=== PATIENT | female | born 1955 | race Caucasian/White ===

== ENCOUNTER → 2020-01-31 | Outpatient (CLI) | payer MEDICARE ==
[~2020-01-31] MED LIST: FERR-36 PO; MULT-245 PO; PRAM2.252 PO; PSYL0.5215 PO
== END | disposition home or self-care (01) ==
LOC: LAB 09:46
PROVIDERS: ATTEND Registered Nurse
DX: Z01.818 Encounter for other preprocedural examination (principal); Z11.59 Encounter for screening for other viral diseases; R93.89 Abnormal findings on diagnostic imaging of other specified body structures
CPT/HCPCS: U0003-CS

== ENCOUNTER → 2020-02-04 | Day surgery (SDC) | payer MEDICARE, MEDICAID ==
[~2020-02-04] MED LIST changes: +IPRATRPIUM/ALBUTEROL 0.5/2.5MG 3 ML NEBU. NEB PRN; +MIDAZOLAM HCL PF 2 MG/2 ML VIAL. IV ONE; +ONDANSETRON PF 4 MG/2 ML VIAL. IV PRN; +PROPOFOL 10,000 MCG/ML (20ML) VIAL IV ONE
[2020-02-04] MEDS: IV RINGERS SOLUTION,LACTATED 1,000 ML IV SCH (10:03)
[2020-02-04 11:00] VITALS: BP 149/73
--- NOTE | 2020-02-06 14:11 | PATHOLOGY ---
[facility] Accession Number: [id number] . 01 Material submitted: . stomach - GASTRIC BX . 02 Diagnosis: Gastric biopsies: - Slight chronic inflammation. See comment. LBQ 02/06/2020 0956 Local . 02 Comment: Sections of the gastric biopsy reveal segments of gastric antral and antral-body transition mucosa showing slight chronic inflammation. There are scattered admixed eosinophils, and in one focus there are a few admixed neutrophils. A properly controlled immunoperoxidase stain for Helicobacter is negative for Helicobacter organisms. (JPM/db; 02/06/2020) . Special stain performed: Immunoperoxidase stain for Helicobacter . 02 Electronically signed: . Waldo Shirley MD, Pathologist NPI- [id number] . 01 Gross description: . The specimen is received in formalin, labeled "David, Tereza, gastric BX" and consists of 2 fragments of pink-mendoza tissue measuring 0.4 x 0.3 cm which are entirely submitted in A1. (SDY; 02/05/2020) SYU/SYU 02/05/2020 1005 Local . 02 Pathologist provided ICD-10: K29.50 . 02 CPT . 819106, [id number] Specimen Comment: A courtesy copy of this report has been sent to [phone] Specimen Comment: [id number] Specimen Comment: Report sent to / DR MOSELEY Performed at: 01 [facility] [address], [place] [id number] MD Wang Sanchez MD Phone: [phone] Performed at: 02 [facility] [address], [place] [id number] MD Waldo Shirley MD Phone: [phone]
== END | disposition home or self-care (01) ==
LOC: SURG 08:59
PROVIDERS: ATTEND Emergency Medicine
DX: R93.3 Abnormal findings on diagnostic imaging of other parts of digestive tract (principal); K29.50 Unspecified chronic gastritis without bleeding; K44.9 Diaphragmatic hernia without obstruction or gangrene; K31.89 Other diseases of stomach and duodenum; Z88.8 Allergy status to other drugs, medicaments and biological substances; Z79.899 Other long term (current) drug therapy
CPT/HCPCS: 43239; J2704; J7120

== ENCOUNTER → 2020-04-16 | Outpatient (CLI) | payer MEDICARE, MEDICAID ==
[2020-02-04 11:00] VITALS: BP 149/73
[~2020-04-16] MED LIST changes: -IPRATRPIUM/ALBUTEROL 0.5/2.5MG 3 ML NEBU. NEB PRN; -MIDAZOLAM HCL PF 2 MG/2 ML VIAL. IV ONE; -ONDANSETRON PF 4 MG/2 ML VIAL. IV PRN; -PROPOFOL 10,000 MCG/ML (20ML) VIAL IV ONE
--- NOTE | 2020-04-16 12:22 | RAD ---
EXAM: Abdomen Doppler sonogram. HISTORY: Weight loss. Pain. TECHNIQUE: Color Doppler sonographic imaging of the abdomen was performed with spectral waveform analysis. COMPARISON: None. FINDINGS: There is aortic atherosclerosis. No aortic aneurysm is seen. There are normal peak systolic velocities within the superior mesenteric artery. There is an elevated peak systolic velocity within the celiac axis measuring 236 cm/s. There is normal directional flow within a patent hepatic artery. The abdominal visceral structures are not formally assessed. IMPRESSION: 1. Elevated peak systolic velocity within the celiac axis suggesting hemodynamically significant stenosis. 2. No Doppler evidence of stenosis involving the superior mesenteric artery. 3. Aortic atherosclerosis. Electronically signed by: Mayte Joseph MD (04/16/2020 12:19 PM) [id number]
--- NOTE | 2020-04-16 14:25 | RAD ---
EXAM: Nuclear gastric emptying scan. HISTORY: Pain and weight loss. COMPARISON: None. TECHNIQUE: Serial static images were obtained over the stomach following oral administration of 2 mCi 99m-Tc sulfur colloid. FINDINGS: The stomach empties into the small bowel without evidence of reflux in the area of the esophagus. There is 37 percent retained tracer activity within stomach at one hour (normal 34.8 percent to 91 percent). There is 12 percent retained tracer activity within stomach at 2 hours (normal 2.7 percent to 60 percent). There is 1 percent retained tracer activity within stomach at 3 hours (normal 0.5 percent to 28 percent). There is 0 percent retained tracer activity within stomach at 4 hours (normal 0.0 percent to 10 percent). The estimated time for half emptying of gastric contents, i.e. 'gastric emptying time' is 50 minutes (normal is 66 +/- 22 minutes). IMPRESSION: Normal gastric emptying scan. Electronically signed by: Mayte Joseph MD (04/16/2020 2:22 PM) [id number]
== END ==
LOC: US 08:29
PROVIDERS: ATTEND Emergency Medicine
DX: I70.0 Atherosclerosis of aorta (principal); R10.13 Epigastric pain; R63.4 Abnormal weight loss; R93.5 Abnormal findings on diagnostic imaging of other abdominal regions, including retroperitoneum
CPT/HCPCS: 78264; 93976; A9541

== ENCOUNTER 2020-11-18 21:00 | Emergency (ER) | payer MEDICARE, MEDICAID ==
[~2020-11-18] VITALS: Ht 149.9 cm; Wt 42.3 kg
[2020-11-18 21:07] VITALS: BP 161/75
--- NOTE | 2020-11-18 21:41 | PHYS DOC ---
Past History Past Medical History: No Pertinent History Past Surgical History: , Other Additional Past Surgical Histo: LP ovarian cyst Alcohol Use: None General Adult EDM: Chief Complaint: FINGER INJURY HPI: HPI: 65-year-old female presents with left little finger laceration. The patient was cutting with scissors and she cut into her finger. She is squeamish at the site of blood so she was unable to evaluate how bad it was. She came in to make sure she did not need sutures. Patient denies any other injuries at this time. Review of Systems: Review of Systems: Constitutional: Denies fever or chills Eyes: Denies change in visual acuity HENT: Denies nasal congestion or sore throat Respiratory: Denies cough or shortness of breath Cardiovascular: Denies chest pain or edema GI: Denies abdominal pain, nausea, vomiting, bloody stools or diarrhea : Denies dysuria Musculoskeletal: Denies back pain or joint pain Integument: Laceration left little finger Neurologic: Denies headache, focal weakness or sensory changes Endocrine: Denies polyuria or polydipsia Lymphatic: Denies swollen glands Psychiatric: Denies depression or anxiety Allergies: Allergies: Allergies Coded Allergies Type Severity Reaction Last Updated Verified varenicline Allergy Unknown 02/04/20 Yes Physical Exam: PE: Constitutional: Well developed, well nourished, no acute distress, non-toxic appearance. [] HENT: Normocephalic, atraumatic, bilateral external ears normal, oropharynx moist, no oral exudates, nose normal. [] Eyes: PERRLA, EOMI, conjunctiva normal, no discharge. [] Neck: Normal range of motion, no tenderness, supple, no stridor. [] Cardiovascular:Heart rate regular rhythm, no murmur [] Lungs & Thorax: Bilateral breath sounds clear to auscultation [] Abdomen: Bowel sounds normal, soft, no tenderness, no masses, no pulsatile masses. [] Skin: Superficial laceration of the left little finger, 3 mm. [] Back: No tenderness, no CVA tenderness. [] Extremities: No tenderness, no cyanosis, no clubbing, ROM intact, no edema. [] Neurologic: Alert and oriented X 3, normal motor function, normal sensory function, no focal deficits noted. [] Psychologic: Affect normal, judgement normal, mood normal. [] Current Patient Data: Vital Signs: Vital Signs Date Time Temp Pulse Resp B/P (MAP) Pulse Ox O2 Delivery O2 Flow Rate FiO2 11/18/20 21:07 98.1 70 16 161/75 (103) 96 Room Air EKG: EKG: [] Radiology/Procedures: Radiology/Procedures: [] Heart Score: C/O Chest Pain: N/A Risk Factors: Risk Factors: DM, Current or recent (<one month) smoker, HTN, HLP, family history of CAD, obesity. Risk Scores: Score 0 - 3: 2.5% MACE over next 6 weeks - Discharge Home Score 4 - 6: 20.3% MACE over next 6 weeks - Admit for Clinical Observation Score 7 - 10: 72.7% MACE over next 6 weeks - Early Invasive Strategies Course & Med Decision Making: Course & Med Decision Making Pertinent Labs and Imaging studies reviewed. (See chart for details) The patient's laceration does not require tissue adhesive or suture repair. I have covered it with a clean dry Band-Aid. It was thoroughly irrigated in the ER. No antibiotics are indicated. She is stable for discharge at this time. [] Dragon Disclaimer: Dragon Disclaimer: This electronic medical record was generated, in whole or in part, using a voice recognition dictation system. Departure Departure: Impression: Primary Impression: Laceration of left little finger Qualified Codes: S61.217A - Laceration without foreign body of left little finger without damage to nail, initial encounter Disposition: HOME / SELF CARE / HOMELESS Condition: STABLE Referrals: MINH MOSELEY (PCP) Patient Instructions: Fingertip Laceration YAEL KAUR DO Nov 18, 2020 21:41
== END 2020-11-18 21:47 | disposition home or self-care (01) ==
LOC: ER 21:00
DX: S61.217A Laceration without foreign body of left little finger without damage to nail, initial encounter (principal); Z88.1 Allergy status to other antibiotic agents; W26.8XXA Contact with other sharp object(s), not elsewhere classified, initial encounter; Y93.89 Activity, other specified; Y92.89 Other specified places as the place of occurrence of the external cause; Y99.8 Other external cause status
CPT/HCPCS: 99282

== ENCOUNTER 2021-07-28 12:30 | Emergency (ER) | payer MEDICARE, MEDICAID ==
[~2021-07-28] VITALS: Ht 149.9 cm; Wt 41.0 kg
[2021-07-28 12:38] VITALS: BP 174/97
[2021-07-28] MEDS ORDERED: ONDANSETRON PF 4 MG/2 ML VIAL. ONE (12:54)
--- NOTE | 2021-07-28 12:58 | PHYS DOC ---
Past History Past Medical History: No Pertinent History (ALICE PADILLA APRN) Past Surgical History: Hysterectomy Additional Past Surgical Histo: LP ovarian cyst (ALICE PADILLA APRN) Alcohol Use: None (ALICE PADILLA APRN) Adult General Chief Complaint Chief Complaint: NAUSEA/VOMITING/DIARRHEA HPI HPI Patient is a 65-year-old female patient presenting to the ED today complaining of nausea, vomiting, symptoms began yesterday. Patient states she has been a partial laparoscopic hysterectomy which included oophorectomy and salpingectomy done on Monday which was July 26, 2021 to remove adnexal tumor. She states symptoms began yesterday, she states she also has 7 out of 10 pain around the umbilicus which is the incision site. Denies anything specifically exacerbating or relieving the abdominal pain. She states her bowel movements have been formed but she is getting some small amount of stool. She is currently on oxycodone for pain. (ALICE PADILLA APRN) Review of Systems Review of Systems Constitutional: Denies fever or chills [] Eyes: Denies change in visual acuity, redness, or eye pain [] HENT: Denies nasal congestion or sore throat [] Respiratory: Denies cough or shortness of breath [] Cardiovascular: No additional information not addressed in HPI [] GI: Reports abdominal pain, nausea and vomiting, denies bloody stools or diarrhea [] : Denies dysuria or hematuria [] Musculoskeletal: Denies back pain or joint pain [] Integument: Denies rash or skin lesions [] Neurologic: Denies headache, focal weakness or sensory changes [] All other systems were reviewed and found to be within normal limits, except as documented in this note. (ALICE PADILLA APRN) Current Medications Current Medications Current Medications Medications (Trade) Dose Ordered Sig/Afia Start Time Stop Time Status Last Admin Dose Admin Ondansetron HCl (Zofran) 4 mg 1X ONCE 07/28/21 13:00 07/28/21 13:01 Sodium Chloride 1,000 ml @ 1,000 mls/hr 1X ONCE 07/28/21 13:00 07/28/21 13:59 (ALICE PADILLA APRN) Allergies Allergies Allergies Coded Allergies Type Severity Reaction Last Updated Verified varenicline Allergy Unknown 8/18/20 Yes (MUTUNGA,ALICE M [employer]) Physical Exam Physical Exam Constitutional: Well developed, well nourished, no acute distress, non-toxic appearance. [] HENT: Normocephalic, atraumatic, bilateral external ears normal, oropharynx moist, no oral exudates, nose normal. [] Eyes: PERRLA, EOMI, conjunctiva normal, no discharge. [] Neck: Normal range of motion, no tenderness, supple, no stridor. [] Cardiovascular:Heart rate regular rhythm, no murmur [] Lungs & Thorax: Bilateral breath sounds clear to auscultation [] Abdomen: Incision noted midline umbilicus with trace amount of dried blood. Incision site is well approximated, no signs of infection. Dressing change was done. Bowel sounds normal, soft, no masses, no pulsatile masses. [] Skin: Warm, dry, no erythema, no rash. [] Back: No tenderness, no CVA tenderness. [] Extremities: No tenderness, no cyanosis, no clubbing, ROM intact, no edema. [] Neurologic: Alert and oriented X 3, normal motor function, normal sensory function, no focal deficits noted. [] Psychologic: Affect normal, judgement normal, mood normal. [] (ALICE PADILLA [employer]) Current Patient Data Vital Signs Vital Signs Date Time Temp Pulse Resp B/P (MAP) Pulse Ox O2 Delivery O2 Flow Rate FiO2 07/28/21 12:38 97.9 68 18 174/97 (122) 97 Room Air (ALICE PADILLA [employer]) EKG EKG [] (ALICE PADILLA [employer]) Radiology/Procedures Radiology/Procedures []PROCEDURE: CT ABD PELV W/ IV CONTRST ONLY EXAM: Abdomen and pelvis CT with intravenous contrast. HISTORY: Pain. Salpingectomy-oophorectomy 2 days ago. TECHNIQUE: Computed tomographic images of the abdomen and pelvis were obtained following the administration of intravenous contrast. Multiplanar reformatting was performed. *One or more of the following individualized dose reduction techniques were utilized for this examination: 1. Automated exposure control. 2. Adjustment of the mA and/or kV according to patient size. 3. Use of iterative reconstruction technique. COMPARISON: None. FINDINGS: Evaluation of the lower thorax demonstrates emphysema and posterior dependent and basilar atelectasis. There is a small amount of pneumoperitoneum primarily within the right upper quadrant. There is a moderate to large amount of colonic stool. There is no bowel obstruction. There is no appendicitis. There are tiny hepatic cysts. No suspicious hepatic lesion is seen. The gallbladder, pancreas, spleen and adrenal glands are unremarkable. There is a 7 mm simple cyst within the right kidney. There is no hydronephrosis. The bladder is unremarkable. The uterus is unremarkable. The right ovary is surgically absent. There is a 1.2 cm fluid density lesion within the left adnexa, likely an ovarian cyst. There is aortic and bilateral iliac calcified atherosclerotic plaque. There is no lymphadenopathy. There is no acute or suspicious osseous finding. There is degenerative change at the lumbosacral junction, with associated right greater than left foraminal stenosis. IMPRESSION: 1. Small amount of pneumoperitoneum, consistent with reported salpingectomy- oophorectomy surgery 2 days prior. 2. 1.2 cm fluid density structure within the left adnexa. This appears to be separate from bowel and may be a small left ovarian or paraovarian cyst. The left ovary is not seen separate from this lesion. 3. Small hepatic and right renal cysts. Follow-up is not routinely performed for simple cysts. 4. Moderate colonic stool. Correlate for constipation. Electronically signed by: Mayte Fuller MD (07/28/2021 2:06 PM) [id number] DICTATED AND SIGNED BY: MAYTE FULLER MD DATE: 07/28/21 1357 CC: ALICE PADILLA APRN; MINH MOSELEY D ~MTH0 0 (ALICE PADILLA APRN) Heart Score C/O Chest Pain: N/A Risk Factors: Risk Factors: DM, Current or recent (<one month) smoker, HTN, HLP, family history of CAD, obesity. Risk Scores: Risk Factors: DM, Current or recent (<one month) smoker, HTN, HLP, family history of CAD, obesity. (ALICE PADILLA APRN) Course & Med Decision Making Course & Med Decision Making Pertinent Labs and Imaging studies reviewed. (See chart for details) This is a 65-year-old female patient presenting to the ED today with nausea and vomiting that began yesterday. She is also complaining of incisional pain. 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 Patient is afebrile, CBC CMP, UA with no acute findings, Ct of the abdomen and pelvis noted for constipation small amount of pneumoperitoneum, consistent with reported salpingectomy-oophorectomy surgery 2 days prior. 1.2 cm fluid density structure within the left adnexa. This appears to be separate from bowel and may be a small left ovarian or paraovarian cyst. The left ovary is not seen separate from this lesion. Small hepatic and right renal cysts. Follow-up is not routinely performed for simple cysts. consulted with Dr. Wu. D/c to home. f/u with her surgeon as soon as she can (ALICE PADILLA APRN) Course & Med Decision Making I was the Attending physician on the above date of service of this patient. This patient was evaluated, examined, treated, and dispositioned from the emergency department by the mid-level practitioner. I reviewed ER findings with NETWORK [employer]ER consistent with recent operative procedure. Agree to close outpatient follow-up with surgeon within upcoming 24 to 48 hours which patient has access to. Appropriate return precautions given prior to discharge Electronically signed, Obdulia Wu DO (OBDULIA WU DO) Rachana Disclaimer Rachana Disclaimer This electronic medical record was generated, in whole or in part, using a voice recognition dictation system. (ALICE PADILLA APRN) Departure Departure: Impression: Primary Impression: Constipation Additional Impressions: Abdominal pain Nausea & vomiting Disposition: HOME / SELF CARE / HOMELESS Condition: STABLE Referrals: MINH MOSELEY (PCP) follow up in one week Patient Instructions: Constipation, Adult, Nausea and Vomiting, [id number] Additional Instructions: You were evaluated in the emergency room for abdominal pain with nausea and vomiting. Your CT of the abdomen and pelvis was notable for constipation. You need to increase your dietary fiber intake. Please take MiraLAX every day as well as the stool softener. Please take magnesium citrate today as well as tomorrow. Follow-up with your surgeon as soon as possible. Scripts Ondansetron (ONDANSETRON ODT) 4 Mg Tab.rapdis 1 TAB PO PRN Q6-8HRS, #16 TAB Prov: ALICE PADILLA APRN 07/28/21 Polyethylene Glycol 3350 (GAVILAX) 17 Gm Powd.pack 17 GM PO DAILY, #1 PKT Prov: ALICE PADILLA [employer]OR [employer] 07/28/21 Problem Qualifiers Primary Impression: Constipation Constipation type: unspecified constipation type Qualified Codes: K59.00 - Constipation, unspecified Additional Impressions: Abdominal pain Abdominal location: periumbilical Qualified Codes: R10.33 - Periumbilical pain Nausea & vomiting Vomiting type: unspecified Qualified Codes: R11.2 - Nausea with vomiting, unspecified SHELTONJUANALICE Read APRN Jul 28, 2021 12:58 OBDULIA WU DO Jul 31, 2021 08:18
[2021-07-28 13:00] LABS: BASO % 1 % (0-3); EOS % 1 % (0-3); HEMATOCRIT 42.4 % (36.0-47.0); HEMOGLOBIN 14.2 g/dL (12.0-15.5); LYMPH # 1.2 x10^3/uL (1.0-4.8); LYMPH % 18 % (24-48); MEAN CORPUSCULAR HEMOGLOBIN 31 pg (25-35); MEAN CORPUSCULAR HGB CONC 33 g/dL (31-37); MEAN CORPUSCULAR VOLUME 94 fL (79-100); MONO # 0.3 x10^3/uL (0.0-1.1); MONO % 5 % (0-9); NEUT # 5.1 x10^3uL (1.8-7.7); NEUT % 75 % (31-73); PLATELET COUNT 210 x10^3/uL (140-400); RED BLOOD COUNT 4.51 x10^6/uL (3.50-5.40); RED CELL DISTRIBUTION WIDTH 13.4 % (11.5-14.5); WHITE BLOOD COUNT 6.8 x10^3/uL (4.0-11.0)
[2021-07-28] MEDS ORDERED: IOHEXOL 300 MG/ML 75 ML VIAL. IV ONE (13:00)
[2021-07-28] MEDS ORDERED: ONDANSETRON PF 4 MG/2 ML VIAL. IVP ONE (13:00)
[2021-07-28] MEDS ORDERED: IV NORMAL SALINE 1,000ML 1,000 ML IV ONE (13:00)
[2021-07-28 13:06] LABS: CALCIUM 9.2 mg/dL (8.5-10.1); CREATININE 0.9 mg/dL (0.6-1.0); GFR 62.5; POTASSIUM 3.5 mmol/L (3.5-5.1)
[2021-07-28 13:11] LABS: ALBUMIN 4.2 g/dL (3.4-5.0); ALBUMIN/GLOBULIN RATIO 1.3 (1.0-1.7); TOTAL BILIRUBIN 0.5 mg/dL (0.2-1.0); TOTAL PROTEIN 7.4 g/dL (6.4-8.2)
[2021-07-28 13:42] LABS: BACTERIA,URINE 0 /HPF (0-FEW); BILIRUBIN,URINE NEG (NEG); CLARITY,URINE CLEAR; COLOR,URINE YELLOW; GLUCOSE,URINE 100 mg/dL (NEG); NITRITE,URINE NEG (NEG); RBC,URINE OCC /HPF (0-2); UROBILINOGEN,URINE 0.2 mg/dL (0.2 mg/dL); WBC,URINE OCC /HPF (0-4)
[2021-07-28 13:43] LABS: SQUAMOUS EPITHELIAL CELL,UR OCC /LPF
--- NOTE | 2021-07-28 14:09 | RAD ---
EXAM: Abdomen and pelvis CT with intravenous contrast. HISTORY: Pain. Salpingectomy-oophorectomy 2 days ago. TECHNIQUE: Computed tomographic images of the abdomen and pelvis were obtained following the administ ration of intravenous contrast. Multiplanar reformatting was performed. *One or more of the following individualized dose reduction techniques were utilized for this examina tion: 1. Automated exposure control. 2. Adjustment of the mA and/or kV according to patient size. 3. Use of iterative reconstruction technique. COMPARISON: None. FINDINGS: Evaluation of the lower thorax demonstrates emphysema and posterior dependent and basilar a telectasis. There is a small amount of pneumoperitoneum primarily within the right upper quadrant. Th ere is a moderate to large amount of colonic stool. There is no bowel obstruction. There is no append icitis. There are tiny hepatic cysts. No suspicious hepatic lesion is seen. The gallbladder, pancreas, spleen and adrenal glands are unremarkable. There is a 7 mm simple cyst within the right kidney. There is n o hydronephrosis. The bladder is unremarkable. The uterus is unremarkable. The right ovary is surgically absent. There is a 1.2 cm fluid density lesion within the left adnexa, likely an ovarian cyst. There is aortic and bilateral iliac calcified atherosclerotic plaque. There is no lymphadenopathy. There is no acute or s uspicious osseous finding. There is degenerative change at the lumbosacral junction, with associated right greater than left foraminal stenosis. IMPRESSION: 1. Small amount of pneumoperitoneum, consistent with reported salpingectomy-oophorectomy surgery 2 da ys prior. 2. 1.2 cm fluid density structure within the left adnexa. This appears to be separate from bowel and may be a small left ovarian or paraovarian cyst. The left ovary is not seen separate from this lesion . 3. Small hepatic and right renal cysts. Follow-up is not routinely performed for simple cysts. 4. Moderate colonic stool. Correlate for constipation. Electronically signed by: Mayte Joseph MD (07/28/2021 2:06 PM) [id number]
[2021-07-28] MEDS ORDERED: POLY17PO PO (14:51)
[2021-07-28] MEDS ORDERED: ONDA4TAB12 PO (14:53)
[2021-07-28] MEDS ORDERED: MAGNESIUM CITRATE 296 ML SOLUTION. PO ONE (15:00)
== END 2021-07-28 15:10 | disposition home or self-care (01) ==
LOC: ER 12:30
DX: K59.00 Constipation, unspecified (principal); R11.2 Nausea with vomiting, unspecified; R10.33 Periumbilical pain; Z90.710 Acquired absence of both cervix and uterus; Z88.1 Allergy status to other antibiotic agents
CPT/HCPCS: 36415; 74177; 80053; 81001; 85025; 96361; 96374; 99285; J2405; J7030; Q9967